=== PATIENT | male | born 1970 | race African-American/Black ===

== ENCOUNTER 2016-08-21 09:46 | Emergency (ER) | payer MEDICAID ==
[~2016-08-21] VITALS: Ht 185.4 cm; Wt 99.8 kg
[2016-08-21 09:59] VITALS: BP 131/98
--- NOTE | 2016-08-21 10:01 | NUR ---
Patient ambulated to bed 07.
--- NOTE | 2016-08-21 10:01 | NUR ---
David martell in [facility] - 08/21/16 at 1002 by MEDMAYANK Patient ambulated to bed 06.
--- NOTE | 2016-08-21 10:06 | NUR ---
PATIENT PRESENTS TO ED WITH CHIN ABSCESS W/ REDNESS AND SWELLING X1 WEEK. DENIES N/V/D; SKIN IS PINK/WARM/DRY; AAOX4 WITH EVEN AND STEADY GAIT; LUNGS CLEAR BL; HR EVEN AND REGULAR; PT DENIES ANY FEVER, CP, SOB, OR COUGH AT THIS TIME; PATIENT STATES PAIN OF 0/10 AT THIS TIME; VSS; PATIENT POSITIONED FOR COMFORT; HOB ELEVATED; BEDRAILS UP X2; BED DOWN. ER MD AT BEDSIDE ASSESSING PT.
--- NOTE | 2016-08-21 10:06 | NUR ---
Dr. Malhotra evaluating patient at bedside.
[2016-08-21] MEDS ORDERED: LIDOCAINE/EPI 1% 1:100000 20 ML VIAL INJ ONE (10:11)
[2016-08-21 11:00] VITALS: BP 134/88
--- NOTE | 2016-08-21 11:00 | NUR ---
Patient discharged with v/s stable. Written and verbal after care instructions given and explained. Patient alert, oriented and verbalized understanding of instructions. Ambulatory with steady gait. All questions addressed prior to discharge. ID band removed. Patient advised to follow up with PMD. Rx of MOTRIN AND KEFLEX given. Patient educated on indication of medication including possible reaction and side effects. Opportunity to ask questions provided and answered.
== END 2016-08-21 11:00 | disposition home or self-care (01) ==
LOC: MED 09:46
DX: L02.01 Cutaneous abscess of face (principal)
CPT/HCPCS: 10060; 99283; J2001

== ENCOUNTER 2016-08-23 10:04 | Emergency (ER) | payer MEDICAID ==
[~2016-08-23] VITALS: Ht 185.4 cm; Wt 102.1 kg
[2016-08-23 10:48] VITALS: BP 149/87
--- NOTE | 2016-08-23 11:29 | NUR ---
Patient ambulated to bed 8. ANATOMIC PATHOLOGIST evaluating patient at bedside.
--- NOTE | 2016-08-23 11:32 | NUR ---
46/M presents to ED for evaluation of incision s/p I&D two days ago. Patient denies any pain. Patient is AOX4 and no signs of distress. VSS.
--- NOTE | 2016-08-23 11:35 | NUR ---
PA student evaluating patient at bedside.
[2016-08-23 12:49] VITALS: BP 149/87
--- NOTE | 2016-08-23 12:50 | NUR ---
Patient discharged with v/s stable. Written and verbal after care instructions given and explained. Patient verbalized understanding. Ambulatory with steady gait. All questions addressed prior to discharge. Advised to follow up with PMD.
== END 2016-08-23 12:50 | disposition home or self-care (01) ==
LOC: MED 10:04
DX: L02.01 Cutaneous abscess of face (principal); R03.0 Elevated blood-pressure reading, without diagnosis of hypertension

== ENCOUNTER 2017-12-26 03:26 | Emergency (ER) | payer MEDICAID ==
[~2017-12-26] VITALS: Ht 185.4 cm; Wt 97.5 kg
[2017-12-26 03:35] VITALS: BP 128/94
[2017-12-26] MEDS ORDERED: PHENAZOPYRIDINE 100 MG TAB PO ONE (04:00)
[2017-12-26] MEDS ORDERED: AZITHROMYCIN 250 MG TAB PO ONE (04:00)
[2017-12-26] MEDS ORDERED: cefTRIAXone 250 MG in LIDOCAINE MPF 1% - **ER/OR** 0.9 ML IM ONE (04:00)
[2017-12-26 04:25] VITALS: BP 129/78
[2017-12-29 15:09] LABS: CHLAMYDIA TRACHOMATIS AMP DNA Negative (Negative)
== END 2017-12-26 04:25 | disposition home or self-care (01) ==
LOC: MED 03:26
DX: A64 Unspecified sexually transmitted disease (principal); R30.0 Dysuria
CPT/HCPCS: 36415; 81002; 96372; 99283; J0696; J2001; 87491

== ENCOUNTER 2018-03-02 01:38 | Emergency (ER) | payer MEDICAID ==
[~2018-03-02] VITALS: Ht 182.9 cm; Wt 105.8 kg
[2018-03-02 01:47] VITALS: BP 124/95
--- NOTE | 2018-03-02 01:48 | NUR ---
PT TAKEN TO BED 8
--- NOTE | 2018-03-02 01:50 | NUR ---
PATIENT PRESENTS TO ED WITH C/O ABD PAIN AFTER HE ATE. PT SKIN IS PINK/WARM/DRY; AAOX4 WITH EVEN AND STEADY GAIT; LUNGS CLEAR BL; HR EVEN AND REGULAR; PATIENT STATES PAIN OF 10/10 AT THIS TIME; PATIENT POSITIONED FOR COMFORT; HOB ELEVATED; BEDRAILS UP X2; BED DOWN.
[2018-03-02] MEDS ORDERED: NACL 0.9% 500 ML IV ONE (01:57)
[2018-03-02] MEDS ORDERED: KETOROLAC 30 MG/ML VIAL IVP ONE (02:00)
--- NOTE | 2018-03-02 02:21 | NUR ---
PT TAKEN XRAY
[2018-03-02 02:28] LABS: ANION GAP 9.7 (8-16); CARBON DIOXIDE 28.3 mmol/L (21-32); CREATININE 1.1 mg/dL (0.7-1.3)
[2018-03-02 02:31] LABS: HEMATOCRIT 44.9 % (36-52); HEMOGLOBIN 14.5 g/dL (12.0-18.0); RED BLOOD CELL COUNT(AUTO) 5.03 MIL/uL (4.20-6.10); WHITE BLOOD COUNT (AUTO) 6.3 K/uL (4.8-10.8)
[2018-03-02 02:32] LABS: BASOPHILS % (AUTO) 1.6 % (0.0-2.0); EOSINOPHILS % (AUTO) 0.5 % (0.0-4.0); LYMPHOCYTES % (AUTO) 33.8 % (20.5-51.1); MEAN CORPUSCULAR HEMOGLOBIN 29 pg (27-31); MEAN CORPUSCULAR HGB CONC 32 g/dL (33-37); MEAN CORPUSCULAR VOLUME 89.3 fL (80-94); MONOCYTES % (AUTO) 10.5 % (1.7-9.3); NEUTROPHILS % (AUTO) 53.6 % (42.2-75.2); PLATELET COUNT (AUTO) 234 K/uL (140-450); RED CELL DISTRIBUTION WIDTH 13.2 % (11.6-13.7)
[2018-03-02 02:33] LABS: ALBUMIN 3.6 g/dL (3.4-5.0); BASOPHILS # (AUTO) 0.1 K/uL (0.00-0.22); LYMPHOCYTES # (AUTO) 2.1 K/uL (2.0-11.5); MONOCYTES # (AUTO) 0.7 K/uL (0.8-1.0); NEUTROPHILS # (AUTO) 3.4 K/uL (1.8-7.7); TOTAL BILIRUBIN 0.2 mg/dL (0.0-1.0)
--- NOTE | 2018-03-02 03:28 | NUR ---
PT TAKEN TO CT
--- NOTE | 2018-03-02 03:40 | NUR ---
PT RETURN FROM CT
--- NOTE | 2018-03-02 05:06 | NUR ---
Patient discharged with v/s stable. Written and verbal after care instructions given and explained. Patient alert, oriented and verbalized understanding of instructions. Ambulatory with steady gait. All questions addressed prior to discharge. ID band removed. Patient advised to follow up with PMD. Rx of lactulose, mineral oil and tramadol given. Patient educated on indication of medication including possible reaction and side effects. Opportunity to ask questions provided and answered.
[2018-03-02 05:07] VITALS: BP 146/93
== END 2018-03-02 05:06 | disposition home or self-care (01) ==
LOC: MED 01:38
DX: N20.0 Calculus of kidney (principal); R10.9 Unspecified abdominal pain; R03.0 Elevated blood-pressure reading, without diagnosis of hypertension
CPT/HCPCS: 36415; 74022; 74176; 80053; 83690; 85025; 96374; 99285; J1885

== ENCOUNTER 2019-05-08 07:29 | Emergency (ER) | payer MEDICAID ==
[~2019-05-08] VITALS: Ht 185.4 cm; Wt 99.8 kg
--- NOTE | 2019-05-08 07:29 | NUR ---
Patient BIBA ALS accompanied by [facility], transferred to bed 11. RN evaluating patient at bedside.
[2019-05-08 07:35] VITALS: BP 135/85
--- NOTE | 2019-05-08 07:35 | NUR ---
PT LAZARO. PER EMS BROTHER CALLED 911 BECAUSE PT WAS ON ROOF, UPON ARRIVAL PT UNABLE TO STATE WHY HE WAS ON ROOF, HAS PERIODS OF "BLANK STARE, NOT ANSWERING QUESTIONS". PT AAOX4, GCS 15, DENIES DRUG USE, DENIES PAIN. VSS. ER MD TO SEE PT. MEDHX:DENIES RX:DENIES
[2019-05-08 08:00] VITALS: BP 135/85
--- NOTE | 2019-05-08 08:00 | NUR ---
PT SEEN AMBULATING OUT OF THE ER WITH STEADY GAIT
--- NOTE | 2019-05-08 08:00 | NUR ---
PATIENT ELOPED FROM FACILITY. DISCHARGE INSTRUCTIONS NOT GIVEN TO PATIENT. DR. TOWNSEND NOTIFIED.
== END 2019-05-08 08:00 | disposition left against medical advice (07) ==
LOC: MED 07:29
DX: R40.4 Transient alteration of awareness (principal)
CPT/HCPCS: 99283